=== PATIENT | male | born 1970 | race Caucasian/White ===

== ENCOUNTER 2017-06-12 12:20 | Emergency (ER) | payer OTHER ==
[~2017-06-12] VITALS: Ht 172.7 cm; Wt 87.5 kg
[~2017-06-12 12:20] MED LIST: BACTRIM,SEPT1 TABLET PO; CIPRO750 MG PO; NEXIUM20 MG PO
[2017-06-12 12:49] LABS: HEMATOCRIT 42.4 % (38.0-50.0); HEMOGLOBIN 14.8 G/DL (12.5-16.6); MCH 29.8 PG (29.0-34.0); MCHC 34.9 G/DL (30.0-36.0); MCV 85.3 FL (86-99); PLATELET COUNT 332 K/uL (156-360); RBC DIS.WIDTH-CV 12.5 % (11.8-14.6); RBC DIS.WIDTH-SD 38.3 % (39-53); RED BLOOD COUNT 4.97 M/uL (4.00-5.50); WHITE BLOOD COUNT 7.6 K/uL (4.1-10.2)
[2017-06-12 12:56] LABS: ALBUMIN 4.4 g/dL (3.2-4.8); CHLORIDE 106 mEq/L (99-109); SODIUM 140 mEq/L (136-147)
[2017-06-12 12:58] LABS: GLUCOSE 146 mg/dL (70-99); TOTAL PROTEIN 7.6 g/dL (6.4-8.3)
[2017-06-12 13:00] LABS: TOTAL BILIRUBIN 0.7 mg/dL (0.0-1.0)
[2017-06-12 13:02] LABS: ALKALINE PHOSPHATASE 51 IU/L (3-129); GFR ESTIMATE (CALCULATED) > 59 mL/min/ (58.99-99999)
[2017-06-12 13:03] LABS: UREA NITROGEN (BUN) 15 mg/dL (9-23)
[2017-06-12 13:04] LABS: AST (GOT) 22 IU/L (2-34)
[2017-06-12 13:05] LABS: ALT (GPT) 24 IU/L (3-49)
[2017-06-12 13:37] LABS: APPEARANCE CLEAR ((CLEAR)); BILIRUBIN NEGATIVE; BLOOD NEGATIVE; COLOR YELLOW ((YELLOW)); GLUCOSE (STRIP) NEGATIVE; KETONES NEGATIVE; LEUKOCYTES NEGATIVE; NITRITE NEGATIVE; PROTEIN (STRIP) NEGATIVE; SPECIFIC GRAVITY 1.014 (1.000-1.030); UCUL ADDED? NO; UROBILINOGEN 0.2 MG/DL (0.2-1.0)
[2017-06-12 14:13] LABS: TROP-I INTERPRETATION NEGATIVE; TROPONIN-I < 0.01 ng/mL (0.0-0.30)
[2017-06-12 15:16] VITALS: BP 138/86
== END 2017-06-12 15:16 | disposition home or self-care (01) ==
LOC: EME 12:20
DX: R51 Headache (principal); R11.0 Nausea; R42 Dizziness and giddiness; T39.2X5A Adverse effect of pyrazolone derivatives, initial encounter; M10.9 Gout, unspecified
CPT/HCPCS: 70450; 80053; 81003; 84484; 85027; 93005; 99281; 99284